=== PATIENT | male | born 1980 | race Caucasian/White ===

== ENCOUNTER 2023-04-16 14:44 | Emergency (ER) | payer MEDICARE, MEDICAID ==
[~2023-04-16] VITALS: Ht 177.8 cm; Wt 86.3 kg
[2023-04-16 14:50] VITALS: BP 145/68; PULSE 64; RESP 18; O2SAT 95
[2023-04-16 15:09] LABS: Basophils # (auto) 0.2 10 ^3/uL (0-0.2); Basophils % (auto) 2.2 % (0.0-2.0); Eosinophils # (auto) 0.6 10 ^3/uL (0-0.8); Eosinophils % (auto) 7.7 % (0.0-7.0); Hemoglobin 11.4 g/dL (13.5-17.5); Lymphocytes # (auto) 2.6 10 ^3/uL (0.4-5.4); Lymphocytes % (auto) 32.4 % (10.0-50.0); Mean Corpuscular Hemoglobin 29.1 pg (28.0-32.0); Mean Corpuscular Hgb Conc. 32.5 g/dL (32.0-36.0); Mean Corpuscular Volume 89.4 fL (80.0-100.0); Monocytes # (auto) 0.7 10 ^3/uL (0-1.3); Monocytes % (auto) 8.1 % (0.0-12.0); Neutrophils % (auto) 49.6 % (37.0-80.0); Red Blood Cells 3.91 10^6/uL (4.5-5.90); White Blood Cell 8.1 10^3/uL (4.4-10.8)
[2023-04-16 15:45] LABS: INR 0.98 (0.9-1.15); Partial Thromboplastin Time 21.5 SEC (24.5-34.5); Prothrombin Time 10.3 sec (9.3-11.8)
== END 2023-04-16 15:57 | disposition home or self-care (01) ==
LOC: ER 14:44
DX: M01.X72 Direct infection of left ankle and foot in infectious and parasitic diseases classified elsewhere (principal); L08.9 Local infection of the skin and subcutaneous tissue, unspecified; M79.601 Pain in right arm; E11.9 Type 2 diabetes mellitus without complications; I10 Essential (primary) hypertension; F12.10 Cannabis abuse, uncomplicated; Z45.2 Encounter for adjustment and management of vascular access device
CPT/HCPCS: 36415; 85025; 85610; 85730